=== PATIENT | female | born 1955 | race Asian ===

== ENCOUNTER 2017-08-27 14:31 | Inpatient (IN) | payer BC ==
[~2017-08-27] VITALS: Ht 165.1 cm; Wt 72.7 kg
[2017-08-27] MEDS ORDERED: CLON0.5T4 PO (14:37)
[2017-08-27] MEDS ORDERED: METO-396 PO (14:37)
[2017-08-27] MEDS ORDERED: METOPROLOL TARTRATE 5MG/5ML VIAL IV ONE (15:30)
[2017-08-27] MEDS ORDERED: NITROGLYCERIN 0.4MG TABLET SL SL PRN (15:30)
[2017-08-27] MEDS ORDERED: LORAZEPAM 2MG/ML CPJ IV ONE (15:30)
[2017-08-27] MEDS ORDERED: SODIUM CHLORIDE 0.9% 1,000 ML IV ONE (15:30)
[2017-08-27] MEDS ORDERED: ASPIRIN 81MG TABLET PO STA (15:30)
[2017-08-27] MEDS ORDERED: ASPIRIN 81MG TABLET ONE (15:49)
[2017-08-27 16:10] LABS: BASOPHILS % 0.4 % (0.0-2.0); EOSINOPHILS % 0.4 % (0.0-5.0); LYMPHOCYTES % 41.6 % (20.0-50.0); MEAN CORPUSCULAR HEMOGLOBIN 20.9 pg (28.0-32.0); MEAN CORPUSCULAR VOLUME 64.1 fL (81.0-99.0); MONOCYTES % 6.7 % (2.0-8.0); NEUTROPHILS % 50.9 % (40.0-76.0); PLATELET 321 x1000/uL (130-400); RED BLOOD CELL COUNT 7.18 mill/uL (4.2-5.4); RED CELL DISTRIBUTION WIDTH 15.8 % (11.6-14.6)
[2017-08-27 16:21] LABS: CHLORIDE 106 mEq/L (98-107)
[2017-08-27 16:25] LABS: D-DIMER 0.21 mg/L FEU (<0.50); PARTIAL THROMBOPLASTIN TIME 29.1 sec (23.4-31.0); PROTHROMBIN TIME 10.5 sec (9.4-11.6)
[2017-08-27 16:29] LABS: *AMPHETAMINES SCREEN URINE NEGATIVE (NEGATIVE); *BARBITURATES SCREEN URINE NEGATIVE (NEGATIVE); *BENZODIAZEPINES SCREEN URINE NEGATIVE (NEGATIVE); *COCAINE SCREEN URINE NEGATIVE (NEGATIVE); CANNABINOID URINE SCREEN NEGATIVE (NEGATIVE); METHADONE URINE SCREEN NEGATIVE (NEGATIVE); OPIATES URINE SCREEN NEGATIVE (NEGATIVE); PHENCYCLIDINE URINE SCREEN NEGATIVE (NEGATIVE)
[2017-08-27 16:30] LABS: ETHANOL BLOOD < 10 mg/dL
[2017-08-27 16:41] LABS: PLATELET ESTIMATE NORMAL
[2017-08-27 16:49] LABS: HCG SCREEN NEGATIVE
[2017-08-27] MEDS ORDERED: LORAZEPAM 2MG/ML CPJ IV PRN (19:00)
[2017-08-27 21:00] VITALS: BP 135/50
[2017-08-27 21:40] VITALS: BP 135/50
[2017-08-27] MEDS ORDERED: ONDANSETRON HCL 4MG/2ML VIAL IV PRN (21:54)
[2017-08-27] MEDS ORDERED: HYDROCODONE/ACETAMINOPHEN 5/325MG TABLET PO PRN (21:55)
[2017-08-27] MEDS ORDERED: MAGNESIUM/ALUMINUM HYDROXIDE/SIMETHICONE 30ML UDC PO PRN (21:55)
[2017-08-27] MEDS ORDERED: ACETAMINOPHEN 325MG TABLET PO PRN (21:55)
[2017-08-27] MEDS ORDERED: CLONIDINE 0.1MG TABLET PO PRN (21:55)
[2017-08-27] MEDS ORDERED: NA PHOS,M-B/NA PHOS,DI-BA ENEMA 118ML PR PRN (21:56)
[2017-08-27] MEDS ORDERED: DOCUSATE SODIUM 100MG CAPSULE PO PRN (21:56)
[2017-08-27] MEDS ORDERED: GUAIFENESIN 200MG/10ML SUGAR FREE UDC PO PRN (21:56)
[2017-08-27] MEDS ORDERED: DIPHENHYDRAMINE 50MG/ML VIAL IV PRN (21:56)
[2017-08-27] MEDS ORDERED: MORPHINE SULFATE 4 MG/ML CPJ (NOT FOR IM USE) IV PRN (21:58)
[2017-08-27] MEDS ORDERED: IPRATROPIUM/ALBUTEROL 0.5-3(2.5)MG/3ML NEB INH PRN (21:58)
[2017-08-27] MEDS ORDERED: LORAZEPAM 0.5MG TABLET PO PRN (22:00)
[2017-08-27 23:26] LABS: CHLORIDE 111 mEq/L (98-107)
[2017-08-28] VITALS: BP 116/48
[2017-08-28] MEDS ORDERED: ROSU10TA PO (00:03)
[2017-08-28] MEDS ORDERED: LEVO100T9 PO (00:03)
[2017-08-28 04:00] VITALS: BP 101/45
[2017-08-28] MEDS ORDERED: LEVOTHYROXINE SODIUM 100MCG TABLET PO SCH (06:45)
[2017-08-28 07:19] LABS: BASOPHILS % 0.6 % (0.0-2.0); EOSINOPHILS % 1.2 % (0.0-5.0); HEMATOCRIT. 39.5 % (36.0-48.0); HEMOGLOBIN. 12.9 g/dL (12.0-16.0); LYMPHOCYTES % 42.2 % (20.0-50.0); MEAN CORPUSCULAR VOLUME 64.1 fL (81.0-99.0); MEAN PLATELET VOLUME 7.9 fl (7.4-10.4); MONOCYTES % 10.4 % (2.0-8.0); NEUTROPHILS % 45.6 % (40.0-76.0); PLATELET 279 x1000/uL (130-400); RED BLOOD CELL COUNT 6.15 mill/uL (4.2-5.4); RED CELL DISTRIBUTION WIDTH 15.8 % (11.6-14.6)
[2017-08-28 07:46] LABS: CHLORIDE 109 mEq/L (98-107)
[2017-08-28 07:57] VITALS: BP 110/45
[2017-08-28 08:04] LABS: HDL CHOLESTEROL 36 mg/dL (40-59); LDL CHOLESTEROL 73 mg/dL (5-100); T4 FREE 1.15 ng/dL (0.76-1.46)
[2017-08-28] MEDS ORDERED: ASPIRIN 81MG EC TABLET PO SCH (09:00)
[2017-08-28] MEDS ORDERED: ENOXAPARIN 40MG/0.4ML SYR SUBCUT SCH (09:00)
[2017-08-28] MEDS ORDERED: MEDICATION NOT ON FORMULARY EA (Metoprolol Succinate 25 MG) PO SCH (09:00)
[2017-08-28] MEDS ORDERED: METOPROLOL TARTRATE 25MG TABLET PO SCH (09:00)
[2017-08-28] MEDS ORDERED: ATORVASTATIN CALCIUM 20MG TABLET PO SCH (21:00)
[2017-08-28] MEDS ORDERED: MEDICATION NOT ON FORMULARY EA (Rosuvastatin Calcium (Crestor) 1 TAB) PO SCH (21:00)
== END 2017-08-28 08:40 | disposition home or self-care (01) | DRG 313 ==
LOC: ER 14:31 → 5WST 17:33 → EDBEDREQ 17:35 → ENRESERV 18:40
PROVIDERS: ADMIT Internal Medicine; ATTEND Internal Medicine
DX: R07.9 Chest pain, unspecified (principal); F41.9 Anxiety disorder, unspecified; I10 Essential (primary) hypertension; R00.0 Tachycardia, unspecified; Z79.899 Other long term (current) drug therapy
CPT/HCPCS: 36415; 71045; 80048; 80053; 80061; 80305; 83880; 84439; 84443; 84484; 84703; 85025; 85379; 85610; 85730; 86850; 86900; 93005; 96361; 96374; 96375; 99285; G0482; J2060; J3490; J7030